=== PATIENT | female | born 1995 | race African-American/Black ===

== ENCOUNTER 2020-03-08 10:14 | Observation (INO) | payer SELFPAY ==
[2020-03-08] MEDS ORDERED: ROCURONIUM BROMIDE INJ 50 MG/5 ML VIAL IV ONE (10:15)
[2020-03-08] MEDS ORDERED: GLYCOPYRROLATE 1 MG/5 ML VIAL ONE (10:15)
[2020-03-08] MEDS ORDERED: SUCCINYLCHOLINE CHLORIDE INJ 200 MG/10 ML VIAL ONE (10:15)
[2020-03-08] MEDS ORDERED: NEOSTIGMINE METHYLSULFATE 10 MG/10 ML VIAL ONE (10:15)
[2020-03-08] MEDS ORDERED: ONDANSETRON HCL INJ/PF 4 MG/2 ML SDV IV ONE (10:24)
--- NOTE | 2020-03-08 10:26 | ER Document Report ---
ED Medical Screen (RME) - General Chief Complaint: Abdominal Pain Stated Complaint: ABDOMINAL PAIN Time Seen by Provider: 03/08/20 10:22 Mode of Arrival: Wheelchair Information source: Patient Notes: Patient presents with sudden onset of left-sided abdominal pain that started this morning with some nausea. Patient denies any vomiting. Patient denies any urinary symptoms. Patient is currently on her menstrual cycle at this time. Patient denies any significant past medical history. I have greeted and performed a rapid initial assessment of this patient. A comprehensive ED assessment and evaluation of the patient, analysis of test results and completion of the medical decision making process will be conducted by additional ED providers. - Related Data Allergies/Adverse Reactions: No Known Allergies Allergy (Verified 03/08/20 10:22) Physical Exam - Vital signs Vitals: Temp Pulse Resp BP Pulse Ox 98.3 F 104 H 18 111/85 98 03/08/20 10:19 03/08/20 10:19 03/08/20 10:19 03/08/20 10:19 03/08/20 10:19 - Abdominal Tenderness: Tender - LLQ tenderness, exam limited by pt sitting in chair Course - Vital Signs Vital signs: Temp Pulse Resp BP Pulse Ox 98.3 F 104 H 18 111/85 98 03/08/20 10:19 03/08/20 10:19 03/08/20 10:19 03/08/20 10:19 03/08/20 10:19
[2020-03-08] MEDS ORDERED: MORPHINE SULFATE 10 MG/ML INJ IV ONE (10:46)
[2020-03-08 10:49] LABS: RED CELL DISTRIBUTION WIDTH 12.8 % (11.5-14.0)
--- NOTE | 2020-03-08 10:49 | ER Document Report ---
ED GI/ - General Chief Complaint: Abdominal Pain Stated Complaint: ABDOMINAL PAIN Time Seen by Provider: 03/08/20 10:22 Mode of Arrival: Wheelchair Notes: HPI: 24-year-old female with the onset this morning upon awakening of some left lower quadrant abdominal "cramping". Worse with walking. Better with lying flat. No nausea, vomiting, fevers, or diarrhea. Patient states her menstrual period was slightly late this month by 1 week. She is currently menstruating. She denies any radiation to the back or vaginal discharge. ROS: See HPI All other review of systems reviewed and otherwise negative Reviewed vital signs and nursing note as charted by RN. PHYSICAL EXAM: CONSTITUTIONAL: Alert and oriented and responds appropriately to questions. Well-appearing; well-nourished HEAD: Normocephalic; atraumatic EYES: Sclera is not pale ENT: Normal nose; no rhinorrhea; moist mucous membranes; pharynx without lesions noted NECK: Supple without meningismus; non-tender; no cervical lymphadenopathy, no masses CARD: Regular rate and rhythm; no murmurs; symmetric distal pulses RESP: Normal chest excursion without splinting or tachypnea; breath sounds clear and equal bilaterally ABD/GI: Normal bowel sounds; non-distended; soft, tenderness to the left lower quadrant without rebound or guarding. No palpable masses BACK: The back appears normal and is non-tender to palpation EXT: Normal ROM in all joints; non-tender to palpation; no edema SKIN: No acute lesions noted NEURO: CN 2-12 intact; 5/5 bilateral upper and lower extremity strength with sensation intact to light touch PSYCH: The patient's mood and manner are appropriate. Grooming and personal hygiene are appropriate. - Related Data Allergies/Adverse Reactions: No Known Allergies Allergy (Verified 03/08/20 10:22) Past Medical History - General Information source: Patient - Social History Smoking Status: Current Every Day Smoker Drug Abuse: Marijuana Family History: Reviewed & Not Pertinent Patient has homicidal ideation: No Physical Exam - Vital signs Vitals: Temp Pulse Resp BP Pulse Ox 98.3 F 104 H 18 111/85 98 03/08/20 10:19 03/08/20 10:19 03/08/20 10:19 03/08/20 10:19 03/08/20 10:19 Course - Re-evaluation Re-evalutation: 03/08/20 10:48 We will obtain a stat transvaginal ultrasound to evaluate for the possibility of ovarian torsion. Also in the differential is an ovarian cyst rupture, ectopic , or other pelvic abnormality. Vital signs as recorded. 03/08/20 11:28 Labs as recorded. Given the concern about ectopic I called and spoke to the TRANSPORTATION PROGRAM DIRECTOR on-call. The imaging has been performed but is yet to be int erpreted. I have added on a quantitative hCG. I believe that the patient most likely is having an ectopic . This would make the patient a at around 5 to 6 weeks. 03/08/20 12:27 Ultrasound shows a 3.9 cm left adnexal mass. Quantitative hCG 6000. No intrauterine findings. I re-paged the TRANSPORTATION PROGRAM DIRECTOR. Patient has been n.p.o. since last night. - Vital Signs Vital signs: Temp Pulse Resp BP Pulse Ox 98.3 F 104 H 18 111/85 98 03/08/20 10:19 03/08/20 10:19 03/08/20 10:19 03/08/20 10:19 03/08/20 10:19 - Laboratory Result Diagrams: 03/08/20 10:42 03/08/20 10:42 Laboratory results interpreted by me: 03/08/20 03/08/20 03/08/20 10:42 10:42 10:42 WBC 17.8 H Hgb 11.3 L Hct 34.1 L Absolute Neuts (auto) 13.8 H Serum HCG, Qual POSITIVE H Beta HCG, Quant 6053.70 H Critical Care Note - Critical Care Note Total time excluding time spent on procedures (mins): 35 Discharge - Discharge Clinical Impression: Ectopic Qualifiers: Location of ectopic : unspecified location Intrauterine status: without intrauterine Qualified Code(s): O00.90 - Unspecified ectopic without intrauterine Condition: Fair Disposition: ADMITTED INPATIENT Admitting Provider: [facility] Unit Admitted: OR
[2020-03-08 10:58] LABS: ABSOLUTE BASOPHILS # (AUTO) 0.1 10^3/uL (0.0-0.2); ABSOLUTE LYMPHOCYTES (AUTO) 2.5 10^3/uL (0.5-4.7); ABSOLUTE MONOCYTES (AUTO) 1.4 10^3/uL (0.1-1.4); ABSOLUTE NEUT (AUTO) 13.8 10^3/uL (1.7-8.2); BASOPHILS % (AUTO) 0.4 % (0-2); EOSINOPHILS % (AUTO) 0.1 % (0-6); HEMATOCRIT 34.1 % (36.0-47.0); HEMOGLOBIN 11.3 g/dL (12.0-15.5); LYMPHOCYTES % (AUTO) 13.9 % (13-45); MEAN CORPUSCULAR HEMOGLOBIN 27.2 pg (27.0-33.4); MEAN CORPUSCULAR HGB CONC 33.2 g/dL (32.0-36.0); MEAN CORPUSCULAR VOLUME 82 fl (80-97); MONOCYTES % (AUTO) 7.7 % (3-13); PLATELET COUNT 223 10^3/uL (150-450); RED BLOOD COUNT 4.16 10^6/uL (3.72-5.28); SEGMENTED NEUTROPHILS % (AUTO) 77.9 % (42-78); TOTAL CELLS COUNTED % (AUTO) 100 %; WHITE BLOOD COUNT 17.8 10^3/uL (4.0-10.5)
[2020-03-08 11:08] LABS: ALBUMIN 4.2 g/dL (3.5-5.0); ALKALINE PHOSPHATASE 50 U/L (38-126); ANION GAP 11 (5-19); ASPARTATE AMINO TRANSFERASE 32 U/L (14-36); BILIRUBIN,DIRECT 0.2 mg/dL (0.0-0.4); BILIRUBIN,TOTAL 0.6 mg/dL (0.2-1.3); BLOOD UREA NITROGEN 9 mg/dL (7-20); CALCIUM 9.3 mg/dL (8.4-10.2); CARBON DIOXIDE 22 mmol/L (22-30); CHLORIDE 106 mmol/L (98-107); GLUCOSE 94 mg/dL (75-110); POTASSIUM 3.8 mmol/L (3.6-5.0)
--- NOTE | 2020-03-08 11:58 | RADIOLOGY REPORT (SQ) ---
EXAM DESCRIPTION: U/S NON OB PEL W/DOPPLER IMAGES COMPLETED DATE/TIME: 03/08/2020 11:39 am REASON FOR STUDY: LLQ pain COMPARISON: None. TECHNIQUE: Multiple static grayscale images acquired of the pelvis. Additional selected spectral and color Doppler images recorded. All images stored on PACs. CLINICAL AGE: Unknown LMP BHCG: Pending. LIMITATIONS: None. FINDINGS: UTERUS: No visualized intrauterine . The endometrium is thickened measuring 18 m m. RIGHT ADNEXA: Normal ovary with normal vascular flow. No adnexal free fluid. No adnexal masses. LEFT ADNEXA: In the left adnexa, there is a 3.9 x 2.6 x 2.1 cm hypoechoic structure which may represe nt the left ovary. A tiny amount of free fluid is present within the left adnexa. OTHER: No other significant finding. IMPRESSION: NO VISUALIZED INTRA- OR EXTRAUTERINE . The left ovary is not definitively visu alized, though could be represented by a 3.9 cm hypoechoic structure in the left adnexa. bHCG LEVEL NOT AVAILABLE FOR CORRELATION WITH US FINDINGS. ECTOPIC CANNOT BE EXCLUDED. FOLLOW-UP ULTRASOUND AND SERIAL BHCG LEVELS STRONGLY RECOMMENDED TO ACCURATELY ASSESS STATU S. TECHNICAL DOCUMENTATION: JOB ID: [id number] 2010 [employer]- All Rights Reserved Reading location - IP/workstation name: [email or web address]
[2020-03-08] MEDS ORDERED: NORMAL SALINE 1000 ML 1,000 ML IV ONE (12:27)
[2020-03-08] MEDS ORDERED: FENTANYL CITRATE INJ/PF 100 MCG/2 ML AMPUL IV ONE (12:53)
--- NOTE | 2020-03-08 13:23 | PDOC H&P ---
History of Present Illness Admission Date/PCP: 03/08/20 13:01 Patient complains of: Left sided pain History of Present Illness: DEEPTI JOHNSON is a 24 year old female A1 presenting with severe left sided pain since this morning. Her LMP was in January. Past Medical History LMP: January Gynecological Infection: No Obstetrical History: none - Previous miscarriage. Past Surgical History Past Surgical History: Reports: None Social History Information Source: Patient Smoking Status: Current Every Day Smoker Electronic Cigarette use?: No Frequency of Alcohol Use: Social Hx Recreational Drug Use: Yes Drugs: Marijuana Family History Family History: Reviewed & Not Pertinent Parental Family History Reviewed: Yes Children Family History Reviewed: Yes Sibling(s) Family History Reviewed.: Yes Medication/Allergy Home Medications: No Home Medications 03/08/20 Allergies/Adverse Reactions: No Known Allergies Allergy (Verified 03/08/20 10:22) Review of Systems Constitutional: ABSENT: chills, fever(s), headache(s), weight gain, weight loss Eyes: ABSENT: visual disturbances Ears: ABSENT: hearing changes Cardiovascular: ABSENT: chest pain, dyspnea on exertion, edema, orthropnea, palpitations Respiratory: ABSENT: cough, hemoptysis Physical Exam - Physical Exam Vital Signs: Temp Pulse Resp BP Pulse Ox 98.3 F 104 H 18 111/85 98 03/08/20 10:19 03/08/20 10:19 03/08/20 10:19 03/08/20 10:19 03/08/20 10:19 Intake & Output 03/07/20 03/08/20 03/09/20 06:59 06:59 06:59 Weight 61.235 kg General appearance: PRESENT: mild distress, thin Head exam: PRESENT: atraumatic, normocephalic Mouth exam: PRESENT: moist, tongue midline Neck exam: PRESENT: full ROM. ABSENT: carotid bruit, JVD, lymphadenopathy, thyromegaly Respiratory exam: PRESENT: unlabored Cardiovascular exam: PRESENT: RRR. ABSENT: diastolic murmur, rubs, systolic murmur Pulses: PRESENT: normal dorsalis pedis pul, +2 pedal pulses bilateral GI/Abdominal exam: PRESENT: rebound, tenderness - very tender on the left lower quandrant Rectal exam: PRESENT: deferred Gentrourinary exam: PRESENT: other - tender at left adenexa, exam in or Extremities exam: PRESENT: full ROM. ABSENT: calf tenderness, clubbing, pedal edema Musculoskeletal exam: PRESENT: full ROM Neurological exam: PRESENT: alert, awake, oriented to person, oriented to place, oriented to time, oriented to situation, CN II-XII grossly intact. ABSENT: m otor sensory deficit Skin exam: PRESENT: dry, intact, warm. ABSENT: cyanosis, rash Result Laboratory Results: 03/08/20 10:42 03/08/20 10:42 03/08/20 03/08/20 03/08/20 10:42 10:42 10:42 WBC 17.8 H RBC 4.16 Hgb 11.3 L Hct 34.1 L MCV 82 MCH 27.2 MCHC 33.2 RDW 12.8 Plt Count 223 Seg Neutrophils % 77.9 Sodium 138.5 Potassium 3.8 Chloride 106 Carbon Dioxide 22 Anion Gap 11 BUN 9 Creatinine 0.59 Est GFR ( Amer) > 60 Glucose 94 Calcium 9.3 Total Bilirubin 0.6 AST 32 Alkaline Phosphatase 50 Total Protein 7.0 Albumin 4.2 Serum HCG, Qual POSITIVE H Blood Type Antibody Screen 03/08/20 11:45 WBC RBC Hgb Hct MCV MCH MCHC RDW Plt Count Seg Neutrophils % Sodium Potassium Chloride Carbon Dioxide Anion Gap BUN Creatinine Est GFR ( Amer) Glucose Calcium Total Bilirubin AST Alkaline Phosphatase Total Protein Albumin Serum HCG, Qual Blood Type O POSITIVE Antibody Screen NEGATIVE Impressions: Pelvis Ultrasound 03/08/20 10:24 IMPRESSION: NO VISUALIZED INTRA- OR EXTRAUTERINE . The left ovary is not definitively visualized, though could be represented by a 3.9 cm hypoechoic structure in the left adnexa. bHCG LEVEL NOT AVAILABLE FOR CORRELATION WITH US FINDINGS. ECTOPIC CANNOT BE EXCLUDED. FOLLOW-UP ULTRASOUND AND SERIAL BHCG LEVELS STRONGLY RECOMMENDED TO ACCURATELY ASSESS STATUS. Assessment & Plan - Diagnosis (1) Ectopic Qualifiers: Location of ectopic : unspecified location Intrauterine status: without intrauterine Qualified Code(s): O00.90 - Unspecified ectopic without intrauterine Is this a current diagnosis for this admission?: Yes Plan: Plan laparoscopy for evaluation and treatment. Plan d and c also to empty uterus of decidual cast. - Time Time Spent: 30 to 50 Minutes Critical Time spent with patient: 15-24 minutes Anticipated Discharge Disposition: Home, Self Care Anticipated Discharge Timeframe: within 24 hours
[2020-03-08] MEDS ORDERED: KETOROLAC TROMETHAMINE 60 MG/2 ML SDV ONE (13:45)
[2020-03-08] MEDS ORDERED: PROPOFOL INJ 200 MG/20 ML VIAL IV ONE (13:46)
[2020-03-08] MEDS ORDERED: FENTANYL CITRATE INJ/PF 100 MCG/2 ML AMPUL ONE (13:46)
[2020-03-08] MEDS ORDERED: MIDAZOLAM 2 MG/2 ML INJ ONE (13:46)
[2020-03-08] MEDS ORDERED: ONDANSETRON HCL INJ/PF 4 MG/2 ML SDV ONE (13:46)
[2020-03-08] MEDS ORDERED: MORPHINE SULFATE 10 MG/ML INJ IV PRN (15:05)
[2020-03-08] MEDS ORDERED: ONDANSETRON HCL INJ/PF 4 MG/2 ML SDV IV PRN (15:05)
[2020-03-08] MEDS ORDERED: PROMETHAZINE HCL INJ 25 MG/1 ML VIAL IV PRN ×2 (15:05)
[2020-03-08] MEDS ORDERED: FENTANYL CITRATE INJ/PF 100 MCG/2 ML AMPUL IV PRN ×3 (15:05)
[2020-03-08] MEDS ORDERED: OXYCODONE-ACETAMINOPHEN 5-325 MG TABLET PO PRN ×2 (15:05)
[2020-03-08] MEDS ORDERED: MEPERIDINE HCL/PF INJ 25 MG/1 ML DISP.SYRIN IV PRN (15:05)
[2020-03-08] MEDS ORDERED: DIPHENHYDRAMINE HCL 50 MG/ML VIAL IV PRN (15:05)
--- NOTE | 2020-03-08 15:46 | Operative Report ---
Operative Report DATE OF SURGERY: 03/08/20 PREOPERATIVE DIAGNOSIS: Severe left-sided pelvic pain with suspected ectopic pr egnancy. Quant of 6000 with no identified in the uterus. POSTOPERATIVE DIAGNOSIS: Pus in the cul-de-sac consistent with PID OPERATION: Diagnostic laparoscopy and irrigation of cul-de-sac fluid SURGEON: ANGELA WONG ANESTHESIA: GA TISSUE REMOVED OR ALTERED: Cul-de-sac fluid COMPLICATIONS: None ESTIMATED BLOOD LOSS: 10 cc INTRAOPERATIVE FINDINGS: No ectopic visualized. No pelvic masses visualized. There appeared to be pus coming from the left tube as well as pus in the cul-de-sac. She also has vaginal bleeding from the cervix prior to the surgery. PROCEDURE: Patient was taken the OR and placed in supine position. General anesthesia was induced. She is placed in dorsolithotomy position using Thomas stirrups. Her perineum and vagina and abdomen were prepared and draped in a sterile fashion. Her bladder was drained with a red rubber catheter. A sponge stick was placed in the vagina for manipulation of the uterus. She has bleeding from the cervix. An incision was made the umbilicus natural umbilical defect was identified and dilated with Tiffanie clamp allowing a blunt port to be placed. Laparoscopy confirmed appropriate placement. A suprapubic incision was made and a suprapubic port was placed under laparoscopic visualization. View of the pelvis was good. Each tube was inspected there appeared to be pus at the fimbria but the left tube as well as pus in the cul-de-sac. I see no evidence of an ectopic or any mass as reported on ultrasound. The ovaries also appeared normal. There is no evidence of an ectopic in the cul-de-sac or in the peritoneum behind the ovaries. At this point the fluid was removed from the pelvis. We will send it for culture. Also the pelvis was irrigated and suctioned free of fluid. The suprapubic port was removed. The gas was allowed to escape from the abdomen and the umbilical port and scope were removed at the same time. The fascia at the umbilicus was closed with a 2-0 Vicryl stitch and skin closed with a 4-0 undyed Vicryl stitch at both sites. The sponge stick was removed from the vagina. The patient was brought out of anesthesia and taken recovery room in stable condition.
[2020-03-08] MEDS: CEFTRIAXONE 1 GM/D5W RTU 1 GM/50 ML RTUPB IV SCH (18:33)
[2020-03-08] MEDS: OXYCODONE-ACETAMINOPHEN 5-325 MG TABLET PO PRN (18:41)
[2020-03-08] MEDS ORDERED: AZITHROMYCIN 1 GM SUSP PACKET PO ONE (21:15)
[2020-03-08] MEDS ORDERED: AZITHROMYCIN 1 GM SUSP PACKET ONE (21:44)
[2020-03-08 22:25] LABS: CHLAM PCR NOT DETECTED (NOT DETECT)
[2020-03-09] MEDS: RINGERS SOLUTION,LACTATED 1,000 ML IV PRN ×3 (00:05→21:23)
[2020-03-09] MEDS: OXYCODONE-ACETAMINOPHEN 5-325 MG TABLET PO PRN ×4 (02:57→23:05)
[2020-03-09] MEDS: CEFTRIAXONE 1 GM/D5W RTU 1 GM/50 ML RTUPB IV SCH ×2 (05:22→17:52)
[2020-03-09 08:59] LABS: ABSOLUTE BASOPHILS # (AUTO) 0.1 10^3/uL (0.0-0.2); ABSOLUTE EOSINOPHILS # (AUTO) 0.1 10^3/uL (0.0-0.6); ABSOLUTE LYMPHOCYTES (AUTO) 3.1 10^3/uL (0.5-4.7); ABSOLUTE MONOCYTES (AUTO) 1.1 10^3/uL (0.1-1.4); ABSOLUTE NEUT (AUTO) 10.8 10^3/uL (1.7-8.2); BASOPHILS % (AUTO) 0.6 % (0-2); EOSINOPHILS % (AUTO) 0.5 % (0-6); HEMATOCRIT 30.1 % (36.0-47.0); HEMOGLOBIN 10.1 g/dL (12.0-15.5); LYMPHOCYTES % (AUTO) 20.5 % (13-45); MEAN CORPUSCULAR HEMOGLOBIN 27.5 pg (27.0-33.4); MEAN CORPUSCULAR HGB CONC 33.5 g/dL (32.0-36.0); MEAN CORPUSCULAR VOLUME 82 fl (80-97); MONOCYTES % (AUTO) 7.5 % (3-13); PLATELET COUNT 182 10^3/uL (150-450); RED BLOOD COUNT 3.68 10^6/uL (3.72-5.28); RED CELL DISTRIBUTION WIDTH 12.7 % (11.5-14.0); SEGMENTED NEUTROPHILS % (AUTO) 70.9 % (42-78); TOTAL CELLS COUNTED % (AUTO) 100 %; WHITE BLOOD COUNT 15.3 10^3/uL (4.0-10.5)
--- NOTE | 2020-03-09 09:48 | PDOC PROGRESS REPORT ---
Subjective Progress Note for:: 03/09/20 Subjective:: patient indicates she is feeling better. she states that she does not know about surgical findings yesterday. I discussed this with her now and let her know about the purulence found in her abdomen during surgery yesterday and no findings of ectopic . I did explain that her wbc and HCG counts are decreasing so it looks like PID and SAB coincidental Reason For Visit: PID, Physical Exam - Physical Exam Vital Signs: Temp Pulse Resp BP Pulse Ox 97.8 F 78 14 116/78 96 03/09/20 04:15 03/09/20 04:15 03/09/20 04:15 03/09/20 04:15 03/09/20 04:15 Intake & Output 03/08/20 03/09/20 03/10/20 06:59 06:59 06:59 Intake Total 1400 1000 Output Total 505 Balance 895 1000 Weight 66.1 kg General appearance: PRESENT: no acute distress, cooperative GI/Abdominal exam: PRESENT: soft, tenderness - appropriate for post operative period Result Laboratory Results: 03/09/20 08:08 03/08/20 10:42 03/08/20 03/08/20 03/08/20 10:42 10:42 10:42 WBC 17.8 H RBC 4.16 Hgb 11.3 L Hct 34.1 L MCV 82 MCH 27.2 MCHC 33.2 RDW 12.8 Plt Count 223 Seg Neutrophils % 77.9 Sodium 138.5 Potassium 3.8 Chloride 106 Carbon Dioxide 22 Anion Gap 11 BUN 9 Creatinine 0.59 Est GFR ( Amer) > 60 Glucose 94 Calcium 9.3 Total Bilirubin 0.6 AST 32 Alkaline Phosphatase 50 Total Protein 7.0 Albumin 4.2 Serum HCG, Qual POSITIVE H Blood Type Antibody Screen 03/08/20 03/09/20 11:45 08:08 WBC 15.3 H RBC 3.68 L Hgb 10.1 L Hct 30.1 L MCV 82 MCH 27.5 MCHC 33.5 RDW 12.7 Plt Count 182 Seg Neutrophils % 70.9 Sodium Potassium Chloride Carbon Dioxide Anion Gap BUN Creatinine Est GFR ( Amer) Glucose Calcium Total Bilirubin AST Alkaline Phosphatase Total Protein Albumin Serum HCG, Qual Blood Type O POSITIVE Antibody Screen NEGATIVE Impressions: Pelvis Ultrasound 03/08/20 10:24 IMPRESSION: NO VISUALIZED INTRA- OR EXTRAUTERINE . The left ovary is not definitively visualized, though could be represented by a 3.9 cm hypoechoic structure in the left adnexa. bHCG LEVEL NOT AVAILABLE FOR CORRELATION WITH US FINDINGS. ECTOPIC CANNOT BE EXCLUDED. FOLLOW-UP ULTRASOUND AND SERIAL BHCG LEVELS STRONGLY RECOMMENDED TO ACCURATELY ASSESS STATUS. Assessment & Plan - Diagnosis (1) Spontaneous Is this a current diagnosis for this admission?: Yes (2) Pelvic infection in female Is this a current diagnosis for this admission?: Yes - Time Time Spent with patient: Less than 15 minutes Anticipated discharge: Home Anticipated DC Timeframe: within 24 hours - Inpatient Certification Based on my medical assessment, after consideration of the patient's comorbidities, presenting symptoms, or acuity I expect that the services needed warrant INPATIENT care.: Yes I certify that my determination is in accordance with my understanding of Medicare's requirements for reasonable and necessary INPATIENT services [42 CFR 412.3e].: Yes Medical Necessity: Need for Pain Control, Need for IV Antibiotics - Plan Summary Plan Summary: Will continue with current antibiotics. I counseled the patient that would prefer she stay for at least another 24 hours for her pelvic infection then can switch to PO for discharge. Counseled the patient that SAB should resolve itself. will repeat labs in AM to follow trends.
[2020-03-09] MEDS ORDERED: AZITHROMYCIN 1 GM SUSP PACKET PO SCH ×2 (10:00)
[2020-03-10] MEDS: OXYCODONE-ACETAMINOPHEN 5-325 MG TABLET PO PRN ×2 (05:12→10:58)
[2020-03-10] MEDS: RINGERS SOLUTION,LACTATED 1,000 ML IV PRN (05:12)
[2020-03-10] MEDS: CEFTRIAXONE 1 GM/D5W RTU 1 GM/50 ML RTUPB IV SCH (05:13)
[2020-03-10 07:55] LABS: MEAN CORPUSCULAR HEMOGLOBIN 28.1 pg (27.0-33.4); MEAN CORPUSCULAR HGB CONC 34.4 g/dL (32.0-36.0); MEAN CORPUSCULAR VOLUME 82 fl (80-97); PLATELET COUNT 194 10^3/uL (150-450); RED BLOOD COUNT 3.55 10^6/uL (3.72-5.28); RED CELL DISTRIBUTION WIDTH 12.3 % (11.5-14.0); WHITE BLOOD COUNT 7.6 10^3/uL (4.0-10.5)
--- NOTE | 2020-03-10 10:46 | PDOC DISCHARGE SUMMARY ---
Impression - Admit/DC Date/PCP Admission Date/Primary Care Provider: 03/08/20 13:01 Discharge Date: 03/10/20 - Discharge Diagnosis (1) Pelvic infection in female Is this a current diagnosis for this admission?: Yes (2) Spontaneous Is this a current diagnosis for this admission?: Yes (3) Abdominal pain Is this a current diagnosis for this admission?: Yes (4) Throat pain in adult Is this a current diagnosis for this admission?: Yes - Additional Information Resuscitation Status: Full Code Discharge Diet: As Tolerated Discharge Activity: Activity As Tolerated, No Lifting Over 10 Pounds, No tub bath, Walk Frequently [facility] [Provider Group] Prescriptions: Doxycycline Hyclate 100 mg PO BID 14 Days #28 tablet. Ibuprofen [Ibu] 800 mg PO Q8 #30 tablet Cephalexin Monohydrate [Keflex 500 mg Capsule] 500 mg PO BID 14 Days #24 capsule Hydrocodone/Acetaminophen [[place] 5-325 mg Tablet] 1 tab PO Q4HP PRN 4 Days #24 tablet PRN Reason: Norgestimate-Ethinyl Estradiol [Sprintec 28 Day Tablet] 1 each PO DAILY 28 Days #28 tablet Home Medications: Cephalexin Monohydrate [Keflex 500 mg Capsule] 500 mg PO BID 14 Days #24 capsule 03/10/20 Doxycycline Hyclate 100 mg PO BID 14 Days #28 tablet. 03/10/20 Hydrocodone/Acetaminophen [[place] 5-325 mg Tablet] 1 tab PO Q4HP PRN 4 Days #24 tablet 03/10/20 Ibuprofen [Ibu] 800 mg PO Q8 #30 tablet 03/10/20 Norgestimate-Ethinyl Estradiol [Sprintec 28 Day Tablet] 1 each PO DAILY 28 Days #28 tablet 03/10/20 Additional Information: Doing well today. No abdominal pain, nausea, vomiting, fever, or chills. She denies bowel or bladder complaints. She does have a sore throat since surgery. She reports walking without dizziness. She is having vaginal bleeding that is moderate today. 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 WBC was elevated but has fallen today to normal level. Since tolerating PO, voiding, pain well managed with PO meds, will plan discharge with continuing PO antibiotics and f/u in the office in a week SHe had not planned this . Discussed beginning control in the next 2-3 weeks and no intercourse until that time. SHe has never taken control. NO contraindication for COCPs. Risks and benefits reviewed. WIll give her Rx of Sprintec to begin in 2-3 weeks. ACHES reviewed. F/u in clinic in 1 weeks. History of Present Illiness History of Present Illness: DEEPTI JOHNSON is a 24 year old female Physical Exam - Physical Exam Vital Signs: Temp Pulse Resp BP Pulse Ox 97.9 F 75 16 123/82 100 03/10/20 10:00 03/10/20 07:26 03/10/20 07:26 03/10/20 07:26 03/10/20 05:08 Intake & Output 03/09/20 03/10/20 03/11/20 06:59 06:59 06:59 Intake Total 1400 4377 380 Output Total 505 1900 Balance 895 6127 380 Weight 66.1 kg Results Laboratory Results: WBC 7.6 10^3/uL (4.0-10.5) 03/10/20 07:20 RBC 3.55 10^6/uL (3.72-5.28) L 03/10/20 07:20 Hgb 10.0 g/dL (12.0-15.5) L 03/10/20 07:20 Hct 29.0 % (36.0-47.0) L 03/10/20 07:20 MCV 82 fl (80-97) 03/10/20 07:20 MCH 28.1 pg (27.0-33.4) 03/10/20 07:20 MCHC 34.4 g/dL (32.0-36.0) 03/10/20 07:20 RDW 12.3 % (11.5-14.0) 03/10/20 07:20 Plt Count 194 10^3/uL (150-450) 03/10/20 07:20 Lymph % (Auto) 20.5 % (13-45) 03/09/20 08:08 [place] % (Auto) 7.5 % (3-13) 03/09/20 08:08 Eos % (Auto) 0.5 % (0-6) 03/09/20 08:08 Baso % (Auto) 0.6 % (0-2) 03/09/20 08:08 Absolute Neuts (auto) 10.8 10^3/uL (1.7-8.2) H 03/09/20 08:08 Absolute Lymphs (auto) 3.1 10^3/uL (0.5-4.7) 03/09/20 08:08 Absolute Monos (auto) 1.1 10^3/uL (0.1-1.4) 03/09/20 08:08 Absolute Eos (auto) 0.1 10^3/uL (0.0-0.6) 03/09/20 08:08 Absolute Basos (auto) 0.1 10^3/uL (0.0-0.2) 03/09/20 08:08 Seg Neutrophils % 70.9 % (42-78) 03/09/20 08:08 Sodium 138.5 mmol/L (137-145) 03/08/20 10:42 Potassium 3.8 mmol/L (3.6-5.0) 03/08/20 10:42 Chloride 106 mmol/L (98-107) 03/08/20 10:42 Carbon Dioxide 22 mmol/L (22-30) 03/08/20 10:42 Anion Gap 11 (5-19) 03/08/20 10:42 BUN 9 mg/dL (7-20) 03/08/20 10:42 Creatinine 0.59 mg/dL (0.52-1.25) 03/08/20 10:42 Est GFR ( Amer) > 60 (>60) 03/08/20 10:42 Est GFR (MDRD) Non-Af > 60 (>60) 03/08/20 10:42 Glucose 94 mg/dL (75-110) 03/08/20 10:42 Calcium 9.3 mg/dL (8.4-10.2) 03/08/20 10:42 Total Bilirubin 0.6 mg/dL (0.2-1.3) 03/08/20 10:42 Direct Bilirubin 0.2 mg/dL (0.0-0.4) 03/08/20 10:42 Neonat Total Bilirubin Not Reportable 03/08/20 10:42 Neonat Direct Bilirubin Not Reportable 03/08/20 10:42 Neonat Indirect Bili Not Reportable 03/08/20 10:42 AST 32 U/L (14-36) 03/08/20 10:42 ALT 20 U/L (<35) 03/08/20 10:42 Alkaline Phosphatase 50 U/L (38-126) 03/08/20 10:42 Total Protein 7.0 g/dL (6.3-8.2) 03/08/20 10:42 Albumin 4.2 g/dL (3.5-5.0) 03/08/20 10:42 Serum HCG, Qual POSITIVE (NEGATIVE) H 03/08/20 10:42 Beta HCG, Quant 2000.70 mIU/mL (0.0-6.15) H 03/10/20 07:20 Total Beta HCG POSITIVE (NEGATIVE) 03/10/20 07:20 Chlamydia DNA (PCR) NOT DETECTED (NOT DETECT) 03/08/20 19:06 N.gonorrhoeae DNA (PCR) NOT DETECTED (NOT DETECT) 03/08/20 19:06 SARS-CoV-2 (PCR) NEGATIVE (NEGATIVE) 03/08/20 14:02 Blood Type O POSITIVE 03/08/20 11:45 Antibody Screen NEGATIVE 03/08/20 11:45 Impressions: Pelvis Ultrasound 03/08/20 10:24 IMPRESSION: NO VISUALIZED INTRA- OR EXTRAUTERINE . The left ovary is not definitively visualized, though could be represented by a 3.9 cm hypoechoic structure in the left adnexa. bHCG LEVEL NOT AVAILABLE FOR CORRELATION WITH US FINDINGS. ECTOPIC CANNOT BE EXCLUDED. FOLLOW-UP ULTRASOUND AND SERIAL BHCG LEVELS STRONGLY RECOMMENDED TO ACCURATELY ASSESS STATUS. Stroke Is this a Stroke Patient?: No Acute Heart Failure - Is this a Heart Failure Patient?: No
[2020-03-10 11:52] VITALS: BP 138/84
[2020-03-10] MEDS ORDERED: PHENOL/SODIUM PHENOLATE 100 SPRAY/177 ML BOTTLE PO PRN (12:50)
== END 2020-03-10 14:06 | disposition home or self-care (01) ==
LOC: ER 10:14 → INTOOBSV 13:01 → EH 13:01 → 2N 16:49 → UNDODISOB 18:43
PROVIDERS: ADMIT Obstetrics & Gynecology; ATTEND Obstetrics & Gynecology
DX: O03.5 Genital tract and pelvic infection following complete or unspecified spontaneous abortion (principal); Z03.818 Encounter for observation for suspected exposure to other biological agents ruled out; R10.9 Unspecified abdominal pain; R07.0 Pain in throat; F17.200 Nicotine dependence, unspecified, uncomplicated; F12.10 Cannabis abuse, uncomplicated
CPT/HCPCS: 49320; 99291; 96374; 96375; 86900; 86901; 36415 ×3; 87205; 87070; 86850; 84702 ×3; 84703; 85025 ×2; 85027; 87635; 87075; 87077; 80053; 87491; 87591; 76856; 93976; 99140; 00840; G0378 ×3; J2250; J3490 ×3; J1885; J3010; Q0144; J2270; J2710; J0330; J2405; J7030; J7120 ×2; J2704; J0696 ×3; C9803; 840